=== PATIENT | male | born 1965 | race Caucasian/White ===

== ENCOUNTER → 2020-09-11 | Outpatient (CLI) | payer MEDICARE ==
[~2020-09-11] MED LIST: ABAC1TAB14 PO; ACYC-40 PO; HYDR1TAB53 PO; LEVO112T41 PO; LEVO50TA64 PO; METH10TA6 PO; METH5TAB6 PO; SULF-23 PO
== END | disposition home or self-care (01) ==
LOC: RAD 09:49
PROVIDERS: ATTEND Neurological Surgery
DX: M51.37 Other intervertebral disc degeneration, lumbosacral region (principal); M48.07 Spinal stenosis, lumbosacral region
CPT/HCPCS: 72148